=== PATIENT | male | born 1940 | race Caucasian/White ===

== ENCOUNTER 2024-11-28 07:02 | Inpatient (IN) | payer OTHER ==
[2024-11-21 11:45] LABS: LEUKOCYTE ESTERASE ,URINE NEGATIVE (Neg); NITRITES, URINE NEGATIVE (Neg); OCCULT BLOOD,URINE NEGATIVE (Neg)
[2024-11-21 11:50] LABS: UA COLLECTION TYPE VOIDED
[2024-11-21 12:00] LABS: MEAN PLATELET VOLUME 10.3 FL (7.4-10.4); PRE OP HEMATOCRIT 35.5 % (42.0-52.0); PRE OP HEMOGLOBIN 11.8 g/dL (14.0-17.9); PRE OP WHITE BLOOD COUNT 4.0 10'3 (4.8-10.8); RED CELL DISTRIBUTION WIDTH 16.2 % (11.5-14.5)
[2024-11-21 12:01] LABS: PRE OP INR 1.0 INR; PRE OP PARTIAL THROMB. TIME 26.0 SECONDS (22-32); PRE OP PROTIME 10.7 SECONDS (9.0-12.0)
[2024-11-21 12:02] LABS: CREATININE 1.17 MG/DL (0.60-1.10); PRE OP ALT 20 U/L (30-65); PRE OP ANION GAP 7 (8-16); PRE OP AST 22 U/L (10-37); PRE OP BILIRUB, TOTAL 0.5 MG/DL (0.0-1.0); PRE OP GLUCOSE 103 MG/DL (70-104); PRE OP POTASSIUM 4.5 MMOL/L (3.4-5.1); PRE OP SODIUM 141 MMOL/L (135-145); TOTAL CARBON DIOXIDE 29.0 MMOL/L (24-32); eGFR 60 ML/MIN
--- NOTE | 2024-11-21 12:14 | ELECTROCARDIOGRAPH REPORT ---
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 ROSEMARIE Vences Measurements Intervals [place] Rate: 73 P: 0 RI: 0 QRS: 64 QRSD: 101 T: 36 QT: 362 QTc: 399 Interpretive Statements Atrial fibrillation Electronically Signed On 11-22-2024 16:26:[address] ROSEMARIE Vences Please click the below link to view image of tracing.
[2024-11-21 12:35] LABS: LARGE PLATELETS FEW; PLATELET ESTIMATE DECREASED
--- NOTE | 2024-11-21 12:49 | RADIOLOGY REPORT ---
DI CHEST,TWO VIEWS CLINICAL HISTORY: PREOP, pain COMPARISON: None TECHNIQUE: Frontal and lateral view of the chest was obtained FINDINGS: Lines and Tubes: None Lungs: No focal consolidation. Pleura: Small bilateral pleural effusions. Cardiomediastinal contours: Cardiomegaly. Bones: No acute osseous abnormality. IMPRESSION: Cardiomegaly with CHF. Small right pleural effusion
[2024-11-23 15:41] LABS: PRE OP PLATELET COUNT 60 X10'3 (140-440)
[2024-11-28] VITALS (28 sets, daily range): BP systolic 108–144; BP diastolic 71–91; PULSE 78–112; RESP 10–20; TEMP 96.3–97.5; O2SAT 94–99
[~2024-11-28] VITALS: Ht 182.9 cm; Wt 86.2 kg
[2024-11-28] MEDS: ceFAZolin 2gm/dext,iso 50mL 50 ML IV ONE (05:30)
[~2024-11-28 07:02] MED LIST: ADAL40SY SUBCUT; ALEN70TA60 PO; APIX5TAB5 PO; ATOR40TA PO; CALC500T63 PO; CETI10CA PO; FERR-119 PO; GLUC500T12 PO; MAGN400C PO; MULT-1085 PO; PANT40TA54 PO; PROSTATE HEALTH PO; Prevagen PO; TAMS-55 PO; VITA1TAB57 PO; [UNRECOGNIZED DRUG - CODE] PO; ondansetron/PF 4mg/2ml inj IV PRN
[2024-11-28] MEDS: VANCOMYCIN/H2O 1.5g/300mL PB 300 ML IV ONE (08:07)
[2024-11-28] MEDS: ringers solution, lacted 1,000 ML IV SCH (08:07)
[2024-11-28] MEDS ORDERED: hydrALAZINE 20mg/ml inj. IV PRN (09:45)
[2024-11-28] MEDS ORDERED: ondansetron/PF 4mg/2ml inj IV PRN (09:45)
[2024-11-28] MEDS ORDERED: acetaminophen 1,000mg/100ml IV 100 ML IV PRN (09:45)
[2024-11-28] MEDS ORDERED: HYDROmorphone/PF 0.2 MG/ML SYRINGE IV PRN ×2 (09:45)
[2024-11-28] MEDS ORDERED: labetalol 20mg/4ml (5mg/ml) syringe IV PRN (09:45)
[2024-11-28] MEDS ORDERED: morphine 4 MG/ML inj SYRINge IV PRN (09:45)
[2024-11-28] MEDS ORDERED: midazolam 1 mg/ML 2ml injection ONE (09:53)
[2024-11-28] MEDS ORDERED: fentaNYL/PF 50MCG/1 ML 2ML syringe ONE (09:53)
[2024-11-28] MEDS ORDERED: LIDOcaine 2% (20mg/ml) 5ml vial ONE (10:10)
[2024-11-28] MEDS ORDERED: propofol inj 20 ML IV ONE (10:10)
[2024-11-28] MEDS ORDERED: ePHEDrine 50MG/ML INJ. ONE (10:11)
[2024-11-28] MEDS ORDERED: heparin 1,000unit/ml 10ml vial 10 ML ONE (10:11)
[2024-11-28] MEDS ORDERED: dexamethasone sod phosphate 4mg/ml inj. ONE (10:11)
[2024-11-28] MEDS ORDERED: 0.9 % SODIUM CHLORIDE 10 ML VIAL ONE (10:11)
[2024-11-28] MEDS ORDERED: ondansetron/PF 4mg/2ml inj ONE (10:11)
--- NOTE | 2024-11-28 10:58 | OPERATIVE REPORT ---
Operative Report Providers to CC CC: Paulie Sosa MD; GEREMIAS NEWMAN MD ~ Date of Procedure: Nov 28, 2024 Pre-Operative Diagnosis: Atrial Fibrillation with high bleeding risk Post-Operative Diagnosis SAME as PRE-Op Procedure Performed 1. Transseptal Puncture via ANSELMO guidance 2. Left Atrial Appendogram 3. Left Atrial Appendage closure with 24mm Watchman FLX Pro Pro Device 4. Ultrasound guided access, right Femoral Vein Surgeon: Elder Newman MD Advertising Production Manager n/a Anesthesiologist: Joaquín Eastman Type of Anesthesia: General Findings: Left Atrial appendage amenable to percutaneous closure. Complications None Prosthetics\\Implants used: 24mm Watchman Flx Pro Estimated Blood Loss: Minimal Specimen Removed: None Description of Procedure: The patient was brought to the skill labor in a fasting state. They underwent General anesthesia. Ultrasound was used to guide access to the right femoral vein where two darlene-cross Perclose devices were placed and upsized to an 8Fr sheath. Heparin was given to maintain an ACT over 250 seconds. An 0.035" wire was advanced into the SVC. The 8Fr sheath was then removed and the 8.5Fr VersaCross Transseptal sheath was advanced into the SVC. The RF wire was then advanced to the tip of the sheath/dilator. Using ANSELMO guidance, appropriate position of the tip of the sheath was determined and using an energized wire tip, advanced into the left atrium. The sheath and dilator were then advanced over the wire into the left atrium. Over the wire, the Versacross sheath was removed and exchanged for the 16Fr cook sheath through which the Watchman Sheath was advanced. The wire and dilator were then removed and exchanged for a 5Fr pigtail catheter which was placed into the left atrial appendage and an appendogram performed in the KENDALL-Caudal position. There, ACT was confirmed to be therapeutic. The Watchman sheath was then advanced into the left atrial appendage over the pigtail catheter. Once appropriate position was determined, the pigtail was removed, the 24mm Watchman FLX device and delivery system were advanced into the tip of the sheath. The delivery system was advanced until an appropriate FLX ball was formed. The guide was then retracted and the Watchman device was unsheathed will full deployment in the appendage. Repeat imaging confirmed a slightly proximal placement of the device so it was recaptured and repositioned in the superior lobe of the appendage where it was again unsheathed. Next, PASS criteria was performed confirming adequate positioning and anchoring(using a tug-test), sizing showing adequate compression, and no significant leak around the device. Another Appendogram was performed confirming placement. The device was then released from the delivery system. The guide and delivery system were removed and the perclose tied as well as the [id number]-up-[id number] suture, ensuring adequate hemostasis. Mean LA Presssure: 10mmHg Contrast: 17cc ACT: 256s Device Compression: 12-20% RESULTS: 1. Successful Left-Atrial Appendage closure with a 24mm Watchman FLX Pro device 2. Right Femoral Vein access, closed with Perclose x 2 and Fufwwv-pt-Yfmdw suture 3. Resume Eliquis 5mg BID x 45days with repeat imaging at that time. If sealed without evidence of device related thrombosis, can stop OAC and start ASA 81mg QD indefinitely, plavix 75mg QD x 6 months. They will be watched in the recovery area until stable, then transferred to the telemetry at that time. ELDER NEWMAN MD Nov 28, 2024 10:58
--- NOTE | 2024-11-28 13:18 | ELECTROCARDIOGRAPH REPORT ---
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 ROSEMARIE Vences Measurements Intervals [place] Rate: 92 P: 0 NC: 0 QRS: 66 QRSD: 110 T: 10 QT: 384 QTc: 476 Interpretive Statements Atrial fibrillation Abnormal inferior Q waves Borderline T abnormalities, inferior leads Electronically Signed On 11-30-2024 19:11:[address] ROSEMARIE Vences Please click the below link to view image of tracing.
--- NOTE | 2024-11-28 18:38 | CARDIOLOGY REPORT ---
APPROVED REPORT EXAM: Focused, limited intraprocedural transesophageal 2D, spectral and color flow Doppler echocardiogram during WATCHMAN deployment. 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 LV inferoseptal apex appears aneurysmal. Overall systolic function is moderately reduced. LVEF is 40-45%. ATRIA LA appears severely dilated. Windsock shaped appendage without thrombus detected. Left upper pulmonary vein identified. Intact interatrial septum. Width / length averages are: 0degr - 15 x 10 mm; 45degr - 16 x 18 mm; 90degr - 14 x 17 mm; 135degr 16 x 17 mm. Loop 20-23: Septal tenting visualized with RF atrial septal puncture performed. Loop 25: Wire in LA. Pigtail advanced to tip of appendage. Pigtail unable to remain in appendage. 8F sheath exchanged for 16F sheath. Septum re-crossed without additional RF. LA pressure is measured at: 10 mmHG. Loop 31: Appendagram performed. Loop 32: Flex ball deployed. 24 mm Watchman FLX device, PASS criteria attempted, unsuccessfully. Loop 41: Device recaptured, repositioned, and redeployed. Loop 44: Successful "TUG" test performed. PASS reassessed. Optimal compression obtained - shoulder to shoulder measurement is: 20.0 mm. Loop 56-57: Device released, sheath pulled back across interatrial septum. Patent interatrial septum with small residual left to right shunt (s/p transseptal puncture). Successfully occluded left atrial appendage with Watchman device well positioned without thrombus. No residual flow around device detected. No pericardial effusion post-implant. PERICARDIUM Normal pericardium. No effusion. CONCLUSION Normal LV size and wall thickness. LV inferoseptal apex appears aneurysmal. Overall systolic function is moderately reduced. LVEF is 40-45%. LA appears severely dilated. Windsock shaped appendage without thrombus detected. Left upper pulmonary vein identified. Intact interatrial septum. Width / length averages are: 0degr - 15 x 10 mm; 45degr - 16 x 18 mm; 90degr - 14 x 17 mm; 135degr 16 x 17 mm. Loop 20-23: Septal tenting visualized with RF atrial septal puncture performed. Loop 25: Wire in LA. Pigtail advanced to tip of appendage. Pigtail unable to remain in appendage. 8F sheath exchanged for 16F sheath. Septum re-crossed without additional RF. LA pressure is measured at: 10 mmHG. Loop 31: Appendagram performed. Loop 32: Flex ball deployed. 24 mm Watchman FLX device, PASS criteria attempted, unsuccessfully. Loop 41: Device recaptured, repositioned, and redeployed. Loop 44: Successful "TUG" test performed. PASS reassessed. Optimal compression obtained - shoulder to shoulder measurement is: 20.0 mm. Loop 56-57: Device released, sheath pulled back across interatrial septum. Patent interatrial septum with small residual left to right shunt (s/p transseptal puncture). Successfully occluded left atrial appendage with Watchman device well positioned without thrombus. No residual flow around device detected. No pericardial effusion post-implant. Normal pericardium. No effusion. Conclusion Normal LV size and wall thickness. LV inferoseptal apex appears aneurysmal. Overall systolic function is moderately reduced. LVEF is 40-45%. LA appears severely dilated. Windsock shaped appendage without thrombus detected. Left upper pulmonary vein identified. Intact interatrial septum. Width / length averages are: 0degr - 15 x 10 mm; 45degr - 16 x 18 mm; 90degr - 14 x 17 mm; 135degr 16 x 17 mm. Loop 20-23: Septal tenting visualized with RF atrial septal puncture performed. Loop 25: Wire in LA. Pigtail advanced to tip of appendage. Pigtail unable to remain in appendage. 8F sheath exchanged for 16F sheath. Septum re-crossed without additional RF. LA pressure is measured at: 10 mmHG. Loop 31: Appendagram performed. Loop 32: Flex ball deployed. 24 mm Watchman FLX device, PASS criteria attempted, unsuccessfully. Loop 41: Device re captured, repositioned, and redeployed. Loop 44: Successful "TUG" test performed. PASS reassessed. Optimal compression obtained - shoulder to shoulder measurement is: 20.0 mm. Loop 56-57: Device released, sheath pulled back across interatrial septum. Patent interatrial septum with small residual left to right shunt (s/p transseptal puncture). Successfully occluded left atrial appendage with Watchman device well positioned without thrombus. No residual flow around device detected. No pericardial effusion post-implant. Normal pericardium. No effusion.
[2024-11-28] MEDS: pantoprazole 40mg Tablet.DR PO SCH (20:14)
[2024-11-29 02:00] VITALS: BP 114/72; PULSE 103; RESP 19; TEMP 97.6; O2SAT 98
--- NOTE | 2024-11-29 07:28 | ELECTROCARDIOGRAPH REPORT ---
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 ROSEMARIE Vences Measurements Intervals [place] Rate: 97 P: 0 AR: 0 QRS: 38 QRSD: 107 T: 11 QT: 363 QTc: 461 Interpretive Statements Atrial fibrillation Borderline T wave abnormalities Electronically Signed On 11-30-2024 19:12:[address] ROSEMARIE Vences Please click the below link to view image of tracing.
[2024-11-29 08:00] VITALS: RESP 16; O2SAT 98
[2024-11-29] MEDS ORDERED: calcium carbonate 500mg tablet PO SCH ×2 (08:00→08:50)
[2024-11-29] MEDS: ringers solution, lacted 1,000 ML IV SCH (09:03)
[2024-11-29 15:10] LABS: RED CELL DISTRIBUTION WIDTH 16.8 % (11.5-14.5)
[2024-11-29 15:11] LABS: MEAN PLATELET VOLUME 10.7 FL (7.4-10.4)
[2024-11-29 15:25] LABS: CREATININE 1.17 MG/DL (0.60-1.10); TOTAL CARBON DIOXIDE 29.9 MMOL/L (24-32); eCRCL 53 ML/MIN; eGFR 60 ML/MIN
[2024-11-29 15:32] LABS: PRO BRAIN NATRIURETIC PEPTIDE 1898 PG/ML (0-450)
--- NOTE | 2024-11-29 16:11 | DISCHARGE SUMMARY ---
Discharge Summary Providers to CC ~ Discharge Summary Admission Diagnosis: Atrial Fibrillation Status Post LAAO Hospital Course DATE OF ADMISSION: 11/28/24 DATE OF DISCHARGE: 11/29/24 Discharge Diagnosis\Comment: Atrial fibrillation with high-risk for bleeding status post left atrial appendage occlusion Operations\Procedures: 1. Transseptal Puncture via ANSELMO guidance 2. Left Atrial Appendogram 3. Left Atrial Appendage closure with 24mm Watchman FLX Pro Pro Device 4. Ultrasound guided access, right Femoral Vein Consultants: No consultants Complications: No complications Condition on DC: Stable Continued Medications: Adalimumab (Humira) 40 Mg/0.4 Ml Syringekit 1 SYR SUBCUT Q2W PER PT, NEXT DOSE WILL BE 12/07/24 Alendronate Sodium* (Fosamax*) 70 Mg Tablet 1 TAB PO Q7D PT TAKES ON WEDNESDAYS in the morning, at least 30 minutes before the first food, beverage, or medication of the day Apixaban (Eliquis) 5 Mg (74 Tabs) Tab.ds.pk 1 TAB PO BID Atorvastatin Calcium* (Lipitor*) 40 Mg Tablet 1 TAB PO HS Calcium Carbonate (Calcium) 500 Mg Tablet 1 TAB PO DAILY for indigestion for 30 Days, #30 TAB 0 Refills Cetirizine Hcl (Zyrtec) 10 Mg Capsule 1 CAP PO HS Diclofenac Sodium (Diclofenac Sodium) 75 Mg Tablet.dr 2 TAB PO Q12H PRN for pain for 30 Days, #60 TAB 0 Refills Ferrous Sulfate (Iron) 325 Mg (65 Mg Iron) Tablet 1 TAB PO Q48H Glucosamine HCl (Glucosamine HCl) 500 Mg Tablet 1 TAB PO DAILY Magnesium Oxide (Magnesium) 400 Mg Magnesium Capsule 1 CAP PO DAILY for 30 Days, #30 CAP 0 Refills Multivitamin (Multi Vitamin Daily) 1 Each Tablet 1 TAB PO DAILY for 30 Days, #30 TAB 0 Refills Pantoprazole Sodium (Pantoprazole Sodium) 40 Mg Tablet.dr 1 TAB PO HS [Prevagen] () Unknown Strength 1 UNIT PO DAILY [Prostate Health] () Unknown Strength 1 UNIT PO DAILY Tamsulosin Hcl* (Flomax*) 0.4 Mg Cap.sr.24h 2 CAP PO HS Vitamin B Comp W-C (Vitamin B-Complex & C) 1 Each Tablet.sa 1 EACH PO DAILY, TAB.SR Discharge Summary: Patient with past medical history significant for atrial fibrillation and high- risk for bleeding presented for planned left atrial appendage occlusion. Underwent placement of a 24 mm watchman FL X pro device with Dr. Richard Newman. Please see his dictation for further details on the procedure. He tolerated well. Was monitored overnight in the telemetry unit. Remained hemodynamically stable. Has been up and ambulatory without complaints. Postoperative echo cardiogram without significant pericardial effusion. Laboratory evaluation significant for thrombocytopenia which is chronic. Physical exam prior to discharge: General: Awake, alert, oriented. No apparent distress Respiratory: Lungs are clear to auscultation bilaterally. No respiratory distress. Chest: Normal shape and size. No accessory muscle use. Cardiovascular: Regular rate and rhythm. S1-S2. No murmur, gallop, rub. Gastrointestinal: Abdomen is soft. Nontender to palpation. Bowel sounds present. Extremities: No lower extremity edema, cyanosis or clubbing. Femoral cath site with dressing clean dry and intact. No ecchymosis or swelling. No hematoma. Neurologic: Alert and oriented x4. Nonfocal Psychiatric: Normal mood and affect. Skin: Normal color. Warm and dry. Plan: Patient is being discharged home in stable condition. He will follow up as scheduled. He will resume oral anticoagulation as prescribed. Activity restrictions reviewed. All questions answered. Case discussed with Dr. Richard Newman who is in agreement with discharge home. *Problems/Diagnosis: (1) Atrial fibrillation (2) Thrombocytopenia Status: Chronic Total Time Spent on D/C: > 30 Minutes Counseling Services Smoking & Tobacco Cessation: N/A DIONE YA NP Nov 29, 2024 16:11
--- NOTE | 2024-11-29 19:10 | CARDIOLOGY REPORT ---
APPROVED REPORT EXAM: Limited 2D, Doppler, and color-flow Echocardiogram. Patient Location: [facility] Blood Pressure: 114/72 mmHg Heart Rate: 85 bpm Indications One day Watchman FLX Closure Device follow up 24 mm Watchman FLX Closure Device Slide Developer is Edna Newman MD Previous echo 11/28/24, [facility], EF: 40-45; Intact interatrial septum with small left to right shunt s/p transeptal puncture 2D Dimensions IVSd 1.1 (0.7-1.1cm) LVDd 4.9 cm PWd 1.1 (0.7-1.1cm) IVSs 1.2 (0.8-1.2cm) LVDs 3.7 (2.5-4.0cm) PWs 1.4 (0.8-1.2cm) LVEF(%) 51.3 (>50%) IVC 16.52 mm FS (%) 26.3 % SV 57.8 ml CO 6.5 L/min Tricuspid Valve TR P. Velocity 270 cm/s RAP ESTIMATE 10 mmHg TR Peak Gr. 29 mmHg RVSP 39 mmHg LEFT VENTRICLE Normal LV size and wall thickness. Overall systolic function is normal. LVEF is 50%. RIGHT VENTRICLE Right ventricle appears mildly dilated with normal function. Elevated right heart pressures as noted above. ATRIA Left atrium appears severely dilated. Intact interatrial septum with small left to right shunt s/p transeptal puncture by color and spectral Doppler. AORTIC VALVE Trileaflet AV appears mildly sclerotic without stenosis. Mild to moderate insufficiency. TRICUSPID VALVE The tricuspid valve is normal in structure with mild regurgitation. GREAT VESSELS The IVC is normal in size and collapses >50% with inspiration. PERICARDIUM Normal pericardium. No effusion. Pleural effusion present. Conclusion Normal LV size and wall thickness. Overall systolic function is normal. LVEF is 50%. Right ventricle appears mildly dilated with normal function. Elevated right heart pressures as noted above. Left atrium appears severely dilated. Intact interatrial septum with small left to right shunt s/p transeptal puncture by color and spectral Doppler. Trileaflet AV appears mildly sclerotic without stenosis. Mild to moderate insufficiency. The tricuspid valve is normal in structure with mild regurgitation. Normal pericardium. No effusion.
== END 2024-11-29 16:14 | disposition home or self-care (01) | DRG 274 ==
LOC: PAS IN 07:02 → PCU 3S 13:13
PROVIDERS: ADMIT Student in an Organized Health Care Education/Training Program; ATTEND Student in an Organized Health Care Education/Training Program
PROC: B24BZZ4 Ultrasonography of Heart with Aorta, Transesophageal (ICD-10-PCS; 2024-11-28)
PROC: 02L73DK Occlusion of Left Atrial Appendage with Intraluminal Device, Percutaneous Approach (ICD-10-PCS; principal; 2024-11-28 09:48)
DX: I48.91 Unspecified atrial fibrillation (principal); Z00.6 Encounter for examination for normal comparison and control in clinical research program; D69.6 Thrombocytopenia, unspecified
CPT/HCPCS: 33340; 36415; 71046; 76937; 80053; 81003; 82948; 83735; 83880; 85008; 85025; 85347; 85610; 85730; 86885; 86900; 86901; 86920; 87081; 93005; 93308; 93312; 93325; A4618; A6258; A6449; C1760; C1889; C1894; G0378; J0690; J1100; J1644; J2003; J2250; J2405; J2704; J3010; J3375; J3490; J7120; Q9967

== ENCOUNTER 2024-12-31 08:48 | Outpatient (CLI) | payer OTHER ==
[~2024-12-31 08:48] MED LIST changes: -ondansetron/PF 4mg/2ml inj IV PRN
[2024-12-31 09:15] LABS: MEAN PLATELET VOLUME 10.2 FL (7.4-10.4); RED CELL DISTRIBUTION WIDTH 15.9 % (11.5-14.5)
[2024-12-31 10:06] LABS: CREATININE 1.07 MG/DL (0.60-1.10); TOTAL CARBON DIOXIDE 28.6 MMOL/L (24-32); eGFR 66 ML/MIN
[2024-12-31 10:11] LABS: BASOPHILS % (MANUAL) 1.0 % (0-1); EOSINOPHILS % (MANUAL) 19.0 % (0-6); LYMPHOCYTES % (MANUAL) 34.0 % (21-51); MONOCYTES % (MANUAL) 9.0 % (2-12); NEUTROPHILS % (MANUAL) 37.0 % (42-75); PLATELET ESTIMATE DECREASED
--- NOTE | 2024-12-31 18:22 | RADIOLOGY REPORT ---
CT POST WATCHMAN INDICATION: PRESENCE OF OTHER CARDIAC IMPLANTS AND GRAFTS TECHNIQUE: CT cardiac imaging for pulmonary vein analysis has been obtained. 3- D, MIP, and MPR images obtained. All CT scans at this facility use dose modulation, iterative reconstruction, and/or weight based dosing when appropriate to reduce radiation dose to as low as reasonably achievable. COMPARISON: CATH LAAO on DOS: 11/28/24 STUDY QUALITY: Good FINDINGS: LEFT ATRIAL APPENDAGE: Status post watchman occlusion device without significant progressive enhancement beyond the nitinol anchors/cage. Slightly increased attenuation within the Nitinol cage, which may be artifactual. Overall appearance of successful complete occlusion. CARDIAC CHAMBERS: Normal size of ventricles and right atrium. No intracardiac thrombus. No pericardial effusion OTHER: Normal caliber of the pulmonary arteries and ascending and descending thoracic aorta. Aortic valvular replacement. Small amount of coronary artery calcification along the left anterior descending, diagonal 1, diagonal 2 and right coronary arteries. Prior percutaneous stent in the distal segment of the right coronary artery which appears grossly patent. Variant pulmonary venous drainage pattern with separate insertion of the superior segment of the right lower lobe into the left atrium. Small right-sided pleural effusion. IMPRESSION: Status post watchman occlusion device without significant progressive enhancement beyond the nitinol anchors/cage. Slightly increased attenuation within the Nitinol cage, which may be artifactual. Overall appearance of successful complete occlusion.
== END 2024-12-31 23:59 | disposition home or self-care (01) ==
LOC: RAD 08:48
PROVIDERS: ATTEND Student in an Organized Health Care Education/Training Program
DX: J90 Pleural effusion, not elsewhere classified (principal); I25.10 Atherosclerotic heart disease of native coronary artery without angina pectoris; Z95.818 Presence of other cardiac implants and grafts; Z95.2 Presence of prosthetic heart valve
CPT/HCPCS: 36415; 71275; 75572; 80053; 85007; 85025; Q9967